=== PATIENT | female | born 1995 | race Caucasian/White ===

== ENCOUNTER 2024-01-23 14:57 | Emergency (ER) | payer OTHER, SELFPAY ==
[2024-01-23 14:59] VITALS: BP 112/76
--- NOTE | 2024-01-23 15:38 | ED.GENMED ---
History of Present Illness
General
Chief Complaint: Abdominal Pain
Source: patient
Time Seen by Provider: 01/23/24 15:15
History of Present Illness
History of Present Illness:
28-year-old female presents to the emergency room complaining of pelvic pain that began suddenly at about 2 PM. Patient states she was sitting with the child that she is in for sudden onset of pain. The pain was significant at that it made her
nauseous. She has not vomited. Patient has not had any previous abdominal operations. She denies any vaginal bleeding or vaginal discharge. She was recently treated for bacterial vaginosis and a yeast infection but has completed the course of
medication. Patient denies radiation of the pain, it stays right in the lower pelvic region. It is primarily suprapubic. She has had mild urgency but no dysuria.
Phy Exam
Physical Exam
Physical Exam:
General: Awake, Alert, Oriented X3. No acute distress.
Vitals: unremarkable
Head: Atraumatic
Eyes: Pupils equal, EOMI
Throat: Airway intact, no exudates
Neck: Trachea midline
Lungs: Clear and equal b/l
Heart: Regular rate, no murmurs
Abd: Soft, tenderness to palpation suprapubic and bilateral lower quadrant, no rebound no pulsatile mass
Back: No CVA tenderness to percussion
Neuro: Nonfocal
Skin: Warm, dry, no rash
Extremities: pulses equal b/l, no edema
Course
Orders/Labs/Results
Orders:
Orders
01/23/24 15:36
0.9% Sodium Chloride 1000 ml [Nss] 1,000 ml IV BOLUS
Ketorolac [Toradol] 15 mg IV NOW STA
Ondansetron Injectable [Zofran] 4 mg IV NOW STA
US Pelvis W Transvag Combined Urgent
Comment:
Reason For Exam: sudden onset pelvic pain eval for torsion
01/23/24 15:37
Test Result ONCE
01/23/24 15:40
Basic Metabolic Panel Urgent
Complete Blood Count/With Diff Urgent
HCG, Serum Qualitative Screen Urgent
Urinalysis Reflex To Culture Urgent
Date Specimen was Collected: 01/23/24
Time Specimen was Collected: 15:39
Urine Microscopic Reflex Cult Urgent
Abnormal Lab Results
01/23/24
15:40
Hct 33.7 L %
(37.0-47.0)
MCV 79.1 L fL
(81.0-99.0)
Absolute Neuts (auto) 7.1 H 10^3/uL
(1.4-6.5)
Absolute Monos (auto) 0.7 H 10^3/uL
(0.1-0.6)
Lymphocytes % 18.5 L %
(20.5-51.1)
Carbon Dioxide 20 L mmol/L
(22-30)
Glucose 107 H mg/dl
(70-99)
Urine Ketones 3+ A
(Negative)
Leukocyte Esterase Rfl Trace A
(Negative)
Urine Yeast Moderate A
(Negative)
01/23/24 15:40
01/23/24 15:40
Vital Signs
Initial and Last Documented VS:
Initial Vital Signs
Temp Pulse Resp BP Pulse Ox
97.7 F 96 16 112/76 98
01/23/24 14:59 01/23/24 14:59 01/23/24 14:59 01/23/24 14:59 01/23/24 14:59
Last Documented Vital Signs
Temp Pulse Resp BP Pulse Ox
97.7 F 72 15 110/71 99
01/23/24 14:59 01/23/24 19:43 01/23/24 19:43 01/23/24 19:43 01/23/24 19:43
MDM/Problems Addressed
Differential Diagnosis Includes:
Ovarian torsion, ruptured ovarian cyst, ectopic
MDM/Problems Addressed:
Labs show patient's not . Hemoglobin is normal. Vital signs are normal. Ultrasound shows free fluid which appears complex likely related to a hemorrhagic ovarian cyst. Patient remained hemodynamically stable here in the emergency room.
Pain is much improved with Toradol. Discussed presentation wit with Dr. Houston who is on-call for gynecology. Given the patient is hemodynamically stable and her discomfort is improved she agrees the patient is stable for discharge home.
Follow-up with her reserve operator as an outpatient. Return for increasing pain, dizziness or for like she is getting worse
*Radiology
Radiology exam reviewed: radiology read reviewed
*Pulse Oximetry
Patient hypoxic: no
*Critical Care Note
Total Time (30-74mins, 75-104mins- exclusive of procedures): Not Applicable
ED Attending Note
-
Portions of this chart may have been created with voice recognition software.� Occasional wrong word or��sound alike� substitutions may have occurred due to the inherent limitations of voice recognition software.
Discharge Plan
Departure
Patient Disposition: Home (Routine Discharge)
Date of Disposition: 01/23/24
Time of Disposition: 20:37
Patient with high blood pressure during this ER visit?: No
Condition: Good
Discharge Problem:
Hemorrhagic ovarian cyst
Instructions: Ovarian Cyst ED
Prescriptions:
No Action
No Current Medications
0
Referrals:
PRIVATE,PHYSICIAN [Family Provider] -
Activity Restrictions/Additional Instructions:
Please return to the emergency room if you have worsening pain, begin to feel dizzy or lightheaded. Follow-up with your reserve operator. You can take 650 mg of Tylenol every 6 hours for pain as well as 400 mg of ibuprofen every 6 hours for pain.
Interventions
Interventions:
*Risk Screen - Suicide Last Done: 01/23/24 14:59
*General Assessment Last Done: 01/23/24 15:37
*Neglect/Abuse Screening Last Done: 01/23/24 15:37
ED- Fall Risk Assessment Last Done: 01/23/24 15:37
*Nursing Disposition Last Done: 01/23/24 20:50
[facility] Assessment Last Done: 01/23/24 15:37
Discharge Date and Time
Discharge Date/Time: 01/23/24 20:51
Print Language: [place]
[2024-01-23] MEDS: TORADOL 15 MG IV (15:44)
[2024-01-23 15:45] LABS: % Basophils 0.4 % (0-2); % Eosinophils 0.2 % (0-6); % Immature Granulocytes 0.2 % (0-0.5); % Lymphocytes 18.5 % (20.5-51.1); % Monocytes 6.8 % (1.7-9.3); % Neutrophils 73.9 % (42.2-75.2); Absolute Lymphocytes 1.8 10^3/uL (1.2-3.4); Absolute Monocytes 0.7 10^3/uL (0.1-0.6); Absolute Neutrophils 7.1 10^3/uL (1.4-6.5); Hematocrit 33.7 % (37.0-47.0); Hemoglobin 12.1 g/dL (12.0-16.0); Mean Corp Hgb Conc. 35.9 g/dL (33.0-37.0); Mean Corpuscular Hgb 28.4 pg (27.0-31.0); Mean Corpuscular Volume 79.1 fL (81.0-99.0); Mean Platelet Volume 10.2 fL (7.4-10.4); Nucleated Red Blood Cells % 0 %; Platelet Count 240 10^3/uL (130-400); Red Blood Cell Count 4.26 10^6/uL (4.20-5.40); Red Cell Dist. Width 12.4 % (11.5-14.5); White Blood Cell Count 9.6 10^3/uL (4.8-10.8)
[2024-01-23] MEDS: ZOFRAN 4 MG IV (15:45)
[2024-01-23] MEDS: NSS 1000 IV (15:45)
[2024-01-23 15:52] LABS: Urine Albumin Negative (Neg - Trace); Urine Bilirubin Negative (Negative); Urine Character Clear (Clear); Urine Color Yellow; Urine Glucose Negative (Negative); Urine Ketone 3+ (Negative); Urine Leukocyte Trace (Negative); Urine Nitrite Negative (Negative); Urine Occult Blood Negative (Negative); Urine Specific Gravity 1.015 (<1.030); Urine Urobilinogen Negative (Neg - 1+); Urine pH 6.5 (5.0-9.0)
[2024-01-23 15:56] LABS: HCG, Serum Qualitative Screen Negative
[2024-01-23 15:59] LABS: Blood Urea Nitrogen 12 mg/dl (7-17); Carbon Dioxide 20 mmol/L (22-30); Chloride 103 mmol/L (98-107); Glucose 107 mg/dl (70-99); Potassium 3.9 mmol/L (3.5-5.1); Sodium 140 mmol/L (135-145); eGFR > 60.00
[2024-01-23 16:02] LABS: Urine Red Blood Cell 0-2 /HPF (0-2); Urine Squamous Cell >30 /LPF (Few); Urine White Cell 0-2 /HPF (0-5)
[2024-01-23 16:03] LABS: Urine Yeast Moderate (Negative)
[2024-01-23 19:43] VITALS: BP 110/71
== END 2024-01-23 20:51 | disposition home or self-care (01) ==
LOC: EMR 14:57
PROVIDERS: EMERGENCY PHYSICIAN Emergency Medicine
DX: N83.209 Unspecified ovarian cyst, unspecified side (principal)
CPT/HCPCS: 99284; 96374; 96375; 96361; 76830; 76856; 80048; 81003; 81015; 84703; 85025